=== PATIENT | female | born 1950 | race Caucasian/White ===

== ENCOUNTER 2021-11-10 16:00 | Inpatient (IN) ==
[2021-11-10] MEDS ORDERED: DECADRON IVP ONE (16:38)
--- NOTE | 2021-11-10 16:38 | ED.PDOC ---
General ED Provider: Dr. DILIP LEMA MD Chief Complaint: Shortness of Air Stated Complaint: mild to mod off and on cough and short of breath for a few days, diagnosed covid + on Saturday, no fever, no NV, +general weakness Time Seen by Provider: 11/10/21 16:27 Mode of Arrival: Walk-In Information Source: Patient Primary Care Provider: BASIL CONTRERAS Nursing and Triage Documentation Reviewed and Agree: Yes Does patient meet sepsis criteria?: No System Inflammatory Response Syndrome: Not Applicable Sepsis Protocol: For patient's 13 years and over: Temp is 96.8 and below OR 101 and greater Pulse >90 BPM Resp >20/minute Acutely Altered Mental Status Are patient's symptoms suggestive of a new infection, such as: -Pneumonia -Skin, Soft Tissue -Endocarditis -UTI -Bone, Joint Infection -Implantable Device -Acute Abdominal Infection -Wound Infection -Meningitis -Blood Stream Catheter Infection -Unknown Review of Systems Review Of Systems Constitutional: Reports Malaise and Weakness; Denies Fever Eyes: Denies Vision change Ears, Nose, Mouth, Throat: Denies Throat pain Respiratory: Reports Cough and Short of air; Denies Stridor or Wheezing Cardiac: Denies Chest pain GI: Denies Abdominal pain or Vomiting : Denies Dysuria Musculoskeletal: Denies Neck pain Skin: Denies Rash or Cyanosis Neurological: Denies Cognitive dysfunction All Other Systems: Other PFSH Female Reproductive History Menstrual Hx Hysterectomy: No Hx Tubal Ligation: No Physical Exam Physical Exam Appearance: Reports No pain distress Ill-appearing: Mild Pain Distress: None Eyes: Reports VERENA, EOMI and Conjunctiva clear ENT: Denies Rhinorrhea Neck: Supple Respiratory: Reports Airway patent, Breath sounds clear and Breath sounds equal Cardiovascular: Reports RRR GI/: Reports Soft and Nontender Musculoskeletal: Reports ROM intact and No edema Skin: Reports Warm and Dry Neurological: Reports Alert and Oriented Psychiatric: Reports Affect appropriate Critical Care Note Critical Care Note Total Critical Care Time (mins): 0 Course Course Hematology/Chemistry: 11/10/21 16:49 11/10/21 16:49 Orders, Labs, Meds: Lab Review 11/10/21 11/10/21 11/10/21 16:49 16:49 16:49 WBC 4.68 RBC 3.74 L Hgb 11.9 L Hct 35.8 L MCV 95.7 MCH 31.8 H MCHC 33.2 RDW Coeff of Alexis 14.3 Plt Count 105 L Immature Gran % (Auto) 0.4 Neut % (Auto) 63.4 Lymph % (Auto) 27.1 Alfalfa % (Auto) 8.5 Eos % (Auto) 0.2 Baso % (Auto) 0.4 Neut # (Auto) 3.0 Lymph # (Auto) 1.3 Alfalfa # (Auto) 0.4 Eos # (Auto) 0.0 Baso # (Auto) 0.0 Immature Gran # (Auto) 0.0 Puncture Site Base Excess O2 Saturation ABG pH ABG pCO2 ABG pO2 ABG HCO3 ABG Total CO2 Iglesia Test Hemoglobin Oxyhemoglobin Carboxyhemoglobin Total Hemoglobin FiO2 % Sodium 135.1 Potassium 4.32 Chloride 100.8 Carbon Dioxide 25.7 Anion Gap 12.92 BUN 23.6 H Creatinine 1.39 H Estimated GFR (MDRD) 37.00 BUN/Creatinine Ratio 16.97 Glucose 112.6 H Lactic Acid Calcium 8.67 Total Bilirubin 0.53 AST 86.9 H ALT 67.6 H Alkaline Phosphatase 47.2 L Troponin I < 0.012 Total Protein 7.14 Albumin 4.17 Globulin 2.97 Albumin/Globulin Ratio 1.40 D-Dimer 983.05 H 11/10/21 11/10/21 17:05 17:53 WBC RBC Hgb Hct MCV MCH MCHC RDW Coeff of Alexis Plt Count Immature Gran % (Auto) Neut % (Auto) Lymph % (Auto) Alfalfa % (Auto) Eos % (Auto) Baso % (Auto) Neut # (Auto) Lymph # (Auto) Alfalfa # (Auto) Eos # (Auto) Baso # (Auto) Immature Gran # (Auto) Puncture Site Rr Base Excess -1.1 O2 Saturation 91.3 L ABG pH 7.43 ABG pCO2 35.0 ABG pO2 60.0 L ABG HCO3 23.2 ABG Total CO2 24.3 H Iglesia Test Pos Hemoglobin 1.4 Oxyhemoglobin 90.9 L Carboxyhemoglobin 1.3 Total Hemoglobin 11.9 FiO2 % 21.0 Sodium Potassium Chloride Carbon Dioxide Anion Gap BUN Creatinine Estimated GFR (MDRD) BUN/Creatinine Ratio Glucose Lactic Acid 1.81 Calcium Total Bilirubin AST ALT Alkaline Phosphatase Troponin I Total Protein Albumin Globulin Albumin/Globulin Ratio D-Dimer Orders Category Date Time Status ABG DRAW REQUEST Stat CARDIO 11/10/21 16:34 Completed EKG-(ED ONLY) Stat CARDIO 11/10/21 16:34 Completed EKG-(ED ONLY) Stat CARDIO 11/10/21 18:25 Stop Req OXYGEN [ED APPLY O2] .ONCE EMERGENCY 11/10/21 18:31 Active ABG COOX Stat LAB 11/10/21 17:05 Completed BLOOD CULTURE Stat LAB 11/10/21 17:57 Received CBC W/ AUTO DIFF Stat LAB 11/10/21 16:49 Completed CMP [COMPREHENSIVE METABOLIC PANEL] Stat LAB 11/10/21 16:49 Completed D-DIMER Stat LAB 11/10/21 16:49 Completed LACTIC ACID Stat LAB 11/10/21 17:53 Completed TROPONIN I Stat LAB 11/10/21 16:49 Completed Dexamethasone Sod Phosphate [Decadron] MEDS 11/10/21 16:38 Discontinued 6 mg IVP ONCE ONE CHEST, 1V AP ONLY Stat RADS 11/10/21 16:34 Completed Medications Discontinued Medications Generic Name Dose Route Start Last Admin Trade Name Freq PRN Reason Stop Dose Admin Dexamethasone Sodium Phosphate 6 mg 11/10/21 16:38 11/10/21 17:08 Dexamethasone Sod Phos 10 Mg/Ml Inj IVP 11/10/21 16:39 6 mg ONCE ONE Administration Vital Signs: Temp Pulse Resp BP Pulse Ox 11/10/21 16:13 97.7 F 81 20 129/58 L 92 L Discharge Plan Discharge Prescriptions: No Action metformin 500 mg Tablet 500 mg PO BID 0RF atenolol 25 mg Tablet 25 mg PO DAILY 0RF ciprofloxacin HCl [Cipro] 500 mg Tablet 500 mg PO BID 0RF hydrocodone-acetaminophen 10-325 mg Tablet 1 tab PO BID PRN (Reason: Pain) 0RF omeprazole 40 mg Capsule,Delayed Release(Dr/Ec) 40 mg PO BEDTIME 0RF levothyroxine [Euthyrox] 75 mcg Tablet 75 mcg PO DAILY 0RF trazodone 100 mg Tablet 100 mg PO BEDTIME PRN (Reason: Insomnia) 0RF gemfibrozil 600 mg Tablet 600 mg PO BID 0RF indapamide 1.25 mg Tablet 1.25 mg PO QAM 0RF omeprazole 20 mg Capsule,Delayed Release(Dr/Ec) 20 mg PO DAILY 0RF aspirin 81 mg Tablet 81 mg PO DAILY 0RF ibuprofen 600 mg Tablet 600 mg PO TID PRN (Reason: Pain) 0RF vitamin E 400 unit Capsule 400 unit PO BID 0RF cholecalciferol (vitamin D3) [Vitamin D3] 25 mcg (1,000 unit) Capsule 25 mcg PO DAILY 0RF escitalopram oxalate 10 mg Tablet 10 mg PO DAILY 0RF gabapentin 300 mg Tablet 300 mg PO TID 0RF ED Provider: DILIP LEMA Physician Progress Note: d/w Dr Contreras who advises transfer care to Dr Vaughn at 19:00 []
[2021-11-10 16:57] LABS: BASOPHILS % (AUTO) 0.4 % (0.0-3.0); EOSINOPHILS % (AUTO) 0.2 % (0.0-7.0); HEMATOCRIT 35.8 % (37.0-47.0); HEMOGLOBIN 11.9 g/dl (12.0-16.0); IMMATURE GRANULOCYTE % (AUTO) 0.4 % (0.0-5.0); LYMPHOCYTES # (AUTO) 1.3 K/uL (0.60-3.4); LYMPHOCYTES % (AUTO) 27.1 (10.0-50.0); MEAN CORPUSCULAR HEMOGLOBIN 31.8 pg (27.0-31.0); MEAN CORPUSCULAR HGB CONC 33.2 (31.8-35.4); MEAN CORPUSCULAR VOLUME 95.7 fl (81.0-99.0); MONOCYTES # (AUTO) 0.4 K/uL (0.4-2.0); MONOCYTES % (AUTO) 8.5 (0-10); NEUTROPHILS % (AUTO) 63.4 % (42.2-75.2); PLATELET COUNT 105 10^3/uL (140-440); RDW COEFFICIENT OF VARIATION 14.3 % (11.6-14.8); RED BLOOD COUNT 3.74 10^6/ul (4.20-5.40); WHITE BLOOD COUNT 4.68 K/ul (4.6-10.2)
[2021-11-10 17:04] LABS: ALANINE AMINOTRANSFERASE 67.6 U/L (0-35); ALBUMIN 4.17 g/dL (3.5-5.0); ALKALINE PHOSPHATASE 47.2 U/L (53-141); ASPARTATE AMINO TRANSFERASE 86.9 U/L (14-36); BILIRUBIN,TOTAL 0.53 mg/dL (0.2-1.3); BLOOD UREA NITROGEN 23.6 mg/dL (7-17); CALCIUM 8.67 mg/dL (8.4-10.2); CARBON DIOXIDE 25.7 mmol/L (22-30.0); CHLORIDE 100.8 mmol/L (98-107); CREATININE 1.39 mg/dL (0.60-1.30); GLUCOSE 112.6 mg/dL (74-106); POTASSIUM 4.32 mmol/L (3.5-5.1); SODIUM 135.1 mmol/L (134.5-145); TOTAL PROTEIN 7.14 g/dL (6.3-8.2)
--- NOTE | 2021-11-10 17:11 | DI ---
EXAM: Chest one view HISTORY: Weakness COMPARISON: None TECHNIQUE: Single view of the chest was performed FINDINGS: The lungs are clear. There is no pleural effusion or pneumothorax. The heart is normal i n size. The mediastinal contour is normal. There are no acute abnormalities of the bones. IMPRESSION: No acute cardiopulmonary process.
[2021-11-10 17:14] LABS: ABG O2 HGB 90.9 % (95-100); ABG PH 7.43 (7.35-7.45); BEecf -1.1 (-2.0-3.0); COHb 1.3 (0.5-1.5); HCO3 23.2 (21-28); MetHb 1.4 (0-1.5); TCO2 24.3 (19-24); sO2 91.3 % (94-98); tHb 11.9 g/dl (11.7-17.4)
[2021-11-10 17:16] LABS: TROPONIN I < 0.012 ng/ml (0.0000-0.120)
[2021-11-10] MEDS ORDERED: BOOSTRIX IM ONE (18:25)
[2021-11-10] MEDS ORDERED: VEKLURY 200 MG in SODIUM CHLORIDE 250 ML IV ONE (23:09)
[2021-11-11 00:07] VITALS: BMI 32.7
[2021-11-11] MEDS: VITAMIN D PO SCH ×3 (00:41→09:52)
[2021-11-11] MEDS: ZINC-220 PO SCH ×2 (00:41→09:51)
[2021-11-11] MEDS: ZYRTEC PO SCH ×3 (00:42→10:50)
[2021-11-11 05:44] LABS: BASOPHILS % (AUTO) 0.3 % (0.0-3.0); HEMATOCRIT 34.2 % (37.0-47.0); HEMOGLOBIN 11.5 g/dl (12.0-16.0); IMMATURE GRANULOCYTE % (AUTO) 0.3 % (0.0-5.0); LYMPHOCYTES # (AUTO) 1.1 K/uL (0.60-3.4); LYMPHOCYTES % (AUTO) 35.7 (10.0-50.0); MEAN CORPUSCULAR HEMOGLOBIN 32.1 pg (27.0-31.0); MEAN CORPUSCULAR HGB CONC 33.6 (31.8-35.4); MEAN CORPUSCULAR VOLUME 95.5 fl (81.0-99.0); MONOCYTES # (AUTO) 0.1 K/uL (0.4-2.0); MONOCYTES % (AUTO) 4.5 (0-10); NEUTROPHILS # (AUTO) 1.8 K/ul (2.0-6.9); NEUTROPHILS % (AUTO) 59.2 % (42.2-75.2); PLATELET COUNT 110 10^3/uL (140-440); RDW COEFFICIENT OF VARIATION 14.1 % (11.6-14.8); RED BLOOD COUNT 3.58 10^6/ul (4.20-5.40); WHITE BLOOD COUNT 3.08 K/ul (4.6-10.2)
[2021-11-11 05:53] LABS: ALANINE AMINOTRANSFERASE 66.4 U/L (0-35); ALBUMIN 4.06 g/dL (3.5-5.0); ALKALINE PHOSPHATASE 52.3 U/L (53-141); ASPARTATE AMINO TRANSFERASE 78.9 U/L (14-36); BILIRUBIN,TOTAL 0.49 mg/dL (0.2-1.3); BLOOD UREA NITROGEN 24.5 mg/dL (7-17); CALCIUM 8.57 mg/dL (8.4-10.2); CARBON DIOXIDE 24.9 mmol/L (22-30.0); CHLORIDE 100.6 mmol/L (98-107); CREATININE 1.17 mg/dL (0.60-1.30); GLUCOSE 238.5 mg/dL (74-106); POTASSIUM 4.05 mmol/L (3.5-5.1); SODIUM 134.5 mmol/L (134.5-145); TOTAL PROTEIN 7.23 g/dL (6.3-8.2)
[2021-11-11 06:05] LABS: TROPONIN I < 0.012 ng/ml (0.0000-0.120)
[2021-11-11 06:14] LABS: PROTHROMBIN TIME 10.3 SEC (9.3-11.0)
[2021-11-11] MEDS: SYNTHROID PO SCH (06:27)
[2021-11-11] MEDS: HUMULIN R SUBCUT PRN ×3 (06:55→19:08)
[2021-11-11] MEDS ORDERED: VENTOLIN HFA (PER PUFF-WITH SPACER) IH SCH (09:00)
[2021-11-11] MEDS ORDERED: NON-FORMULARY MEDICATION (Gabapentin 300 mg Tablet) PO SCH (09:00)
[2021-11-11] MEDS ORDERED: VEKLURY 200 MG in SODIUM CHLORIDE 250 ML IV ONE (09:30)
--- NOTE | 2021-11-11 09:30 | PCM ---
Chief Complaint Chief Complaint: aches all over slight short of breath no chest pain Covid dx Review of Systems Constitutional: Reports No symptoms Eyes: Reports No symptoms Ears: Reports No symptoms Nose: Reports No symptoms Throat: Reports No symptoms Mouth: Reports No symptoms Respiratory: Reports Shortness of air (mild) Cardiovascular: Reports No symptoms Gastrointestinal: Reports No symptoms Genitourinary: Reports No symptoms Neurological: Reports No symptoms Musculoskeletal: Reports Other (achy ) Skin: Reports No symptoms Immunology: Reports No symptoms Hematology: Reports No symptoms Endocrine: Reports No symptoms Psychiatric: Reports No symptoms Allergies Allergies Allergy/AdvReac Type Severity Reaction Status Date / Time diphenhydramine AdvReac Verified 11/10/21 16:25 [From Benadryl] latex AdvReac Verified 11/10/21 16:25 Sulfa (Sulfonamide AdvReac Verified 11/10/21 16:25 Antibiotics) ANESTHESIA AdvReac Uncoded 11/10/21 16:25 Medications Medications: Medications Generic Name Dose Route Start Last Admin Trade Name Freq PRN Reason Stop Dose Admin Albuterol Sulfate 2 puff 11/11/21 09:00 Albuterol Sulfate (Ventolin Hfa) 18 Gm 1 Puff With Spacer IH TID [facility] Aspirin 81 mg 11/11/21 09:00 Aspirin 81 Mg Tab.Chew PO DAILY [facility] Atenolol 25 mg 11/11/21 09:00 Atenolol 25 Mg Tablet PO DAILY [facility] Cetirizine HCl 10 mg 11/10/21 23:30 11/11/21 00:42 Cetirizine Hcl 5 Mg/5 Ml Ud Cup PO Not Given DAILY [facility] Cholecalciferol 5,000 unit 11/10/21 23:20 11/11/21 00:41 Cholecalciferol (Vitamin D3) 1,000 Unit (25 Mcg) Tablet PO 5,000 unit DAILY [facility] Administration Cholecalciferol 1,000 unit 11/11/21 09:00 Cholecalciferol (Vitamin D3) 1,000 Unit (25 Mcg) Tablet PO DAILY [facility] Dexamethasone Sodium Phosphate 6 mg 11/11/21 09:00 Dexamethasone Sod Phos 10 Mg/Ml Inj IM DAILY [facility] Escitalopram Oxalate 10 mg 11/11/21 09:00 Escitalopram Oxalate 10 Mg Tablet PO DAILY [facility] Gabapentin 600 mg 11/11/21 09:00 Gabapentin 300 Mg Capsule PO DAILY [facility] Gabapentin 100 mg 11/11/21 09:00 Gabapentin 100 Mg Capsule PO DAILY [facility] Gemfibrozil 600 mg 11/11/21 09:00 Gemfibrozil 600 Mg Tablet PO BID [facility] Heparin Sodium (Porcine) 5,000 units 11/11/21 09:00 Heparin Sodium,Porcine 5,000 Units/Ml Syringe SUBCUT Q12HR ARCHIE REMDESIVIR SOLUTION 100 mg/ 270 mls @ 270 mls/hr 11/12/21 12:00 Sodium Chloride IV 11/15/21 15:59 1200 ARCHIE REMDESIVIR SOLUTION 200 mg/ 290 mls @ 145 mls/hr 11/11/21 09:30 Sodium Chloride IV 11/11/21 11:29 ONCE ONE Insulin Human Regular 0 unit 11/11/21 05:45 11/11/21 06:55 Insulin Regular, Human 100 Unit/Ml (3ml) Vial SUBCUT 4 unit PRN PRN Administration Hyperglycemia Protocol Levothyroxine Sodium 75 mcg 11/11/21 06:30 11/11/21 06:27 Levothyroxine Sodium 75 Mcg Tablet PO 75 mcg 0630 ARCHIE Administration Non-Formulary Medication 1.25 mg 11/11/21 09:00 Indapamide PO QAM [facility] Trazodone HCl 100 mg 11/11/21 01:47 Trazodone Hcl 50 Mg Tablet PO BEDTIME PRN Insomnia Vitamin E 400 unit 11/11/21 09:00 Vitamin E (Dl,Tocopheryl Acet) 400 Unit Capsule PO BID [facility] Zinc Sulfate 220 mg 11/10/21 23:20 11/11/21 00:41 Zinc Sulfate 220 Mg Capsule PO 220 mg DAILY ARCHIE Administration Body Composition Height: 5 ft 3 in Weight: 184 lb 9 oz Body Mass Index (BMI): 32.7 Vital Signs Temperature: 98.0 F Pulse Rate: 65 Respiratory Rate: 18 Blood Pressure: 129/68 O2 Sat by Pulse Oximetry: 94 Physical Examination Appearance: Reports Well-appearing, No pain distress and Well-nourished Ill-appearing: Mild Pain Distress: None ENT: Reports Ears normal, Nose normal and Oropharynx normal Neck: Supple Respiratory: Reports Airway patent, Breath sounds clear and Breath sounds equal Cardiovascular: Reports RRR, Pulses normal and No murmur GI/: Reports Soft and Nontender Musculoskeletal: Reports Normal strength and No edema Skin: Reports Dry and Normal color Neurological: Reports Sensation intact, Alert and Oriented Psychiatric: Reports Affect appropriate Lab/Tests/Diagnostic Imaging Lab/Tests/Diagnostic Imaging: Lab Review 11/10/21 11/10/21 11/10/21 16:49 16:49 16:49 WBC 4.68 RBC 3.74 L Hgb 11.9 L Hct 35.8 L MCV 95.7 MCH 31.8 H MCHC 33.2 RDW Coeff of Alexis 14.3 Plt Count 105 L Immature Gran % (Auto) 0.4 Neut % (Auto) 63.4 Lymph % (Auto) 27.1 Clare % (Auto) 8.5 Eos % (Auto) 0.2 Baso % (Auto) 0.4 Neut # (Auto) 3.0 Lymph # (Auto) 1.3 Clare # (Auto) 0.4 Eos # (Auto) 0.0 Baso # (Auto) 0.0 Immature Gran # (Auto) 0.0 PT INR Puncture Site Base Excess O2 Saturation ABG pH ABG pCO2 ABG pO2 ABG HCO3 ABG Total CO2 Iglesia Test Hemoglobin Oxyhemoglobin Carboxyhemoglobin Total Hemoglobin FiO2 % Sodium 135.1 Potassium 4.32 Chloride 100.8 Carbon Dioxide 25.7 Anion Gap 12.92 BUN 23.6 H Creatinine 1.39 H Estimated GFR (MDRD) 37.00 BUN/Creatinine Ratio 16.97 Glucose 112.6 H Lactic Acid Calcium 8.67 Ferritin Total Bilirubin 0.53 AST 86.9 H ALT 67.6 H Alkaline Phosphatase 47.2 L Troponin I < 0.012 Total Protein 7.14 Albumin 4.17 Globulin 2.97 Albumin/Globulin Ratio 1.40 D-Dimer 983.05 H 11/10/21 11/10/21 11/11/21 17:05 17:53 05:00 WBC 3.08 L RBC 3.58 L Hgb 11.5 L Hct 34.2 L MCV 95.5 MCH 32.1 H MCHC 33.6 RDW Coeff of Alexis 14.1 Plt Count 110 L Immature Gran % (Auto) 0.3 Neut % (Auto) 59.2 Lymph % (Auto) 35.7 Clare % (Auto) 4.5 Eos % (Auto) 0.0 Baso % (Auto) 0.3 Neut # (Auto) 1.8 L Lymph # (Auto) 1.1 Clare # (Auto) 0.1 L Eos # (Auto) 0.0 Baso # (Auto) 0.0 Immature Gran # (Auto) 0.0 PT INR Puncture Site Rr Base Excess -1.1 O2 Saturation 91.3 L ABG pH 7.43 ABG pCO2 35.0 ABG pO2 60.0 L ABG HCO3 23.2 ABG Total CO2 24.3 H Iglesia Test Pos Hemoglobin 1.4 Oxyhemoglobin 90.9 L Carboxyhemoglobin 1.3 Total Hemoglobin 11.9 FiO2 % 21.0 Sodium Potassium Chloride Carbon Dioxide Anion Gap BUN Creatinine Estimated GFR (MDRD) BUN/Creatinine Ratio Glucose Lactic Acid 1.81 Calcium Ferritin Total Bilirubin AST ALT Alkaline Phosphatase Troponin I Total Protein Albumin Globulin Albumin/Globulin Ratio D-Dimer 11/11/21 11/11/21 11/11/21 05:15 05:15 05:15 WBC RBC Hgb Hct MCV MCH MCHC RDW Coeff of Alexis Plt Count Immature Gran % (Auto) Neut % (Auto) Lymph % (Auto) Clare % (Auto) Eos % (Auto) Baso % (Auto) Neut # (Auto) Lymph # (Auto) Clare # (Auto) Eos # (Auto) Baso # (Auto) Immature Gran # (Auto) PT 10.3 INR 0.99 Puncture Site Base Excess O2 Saturation ABG pH ABG pCO2 ABG pO2 ABG HCO3 ABG Total CO2 Iglesia Test Hemoglobin Oxyhemoglobin Carboxyhemoglobin Total Hemoglobin FiO2 % Sodium 134.5 Potassium 4.05 Chloride 100.6 Carbon Dioxide 24.9 Anion Gap 13.05 BUN 24.5 H Creatinine 1.17 Estimated GFR (MDRD) 45.00 BUN/Creatinine Ratio 20.94 Glucose 238.5 H D Lactic Acid Calcium 8.57 Ferritin 153.00 Total Bilirubin 0.49 AST 78.9 H ALT 66.4 H Alkaline Phosphatase 52.3 L Troponin I < 0.012 Total Protein 7.23 Albumin 4.06 Globulin 3.17 Albumin/Globulin Ratio 1.28 D-Dimer 962.79 H Orders Category Date Time Status ABG DRAW REQUEST Stat CARDIO 11/10/21 16:34 Completed EKG-(ED ONLY) Stat CARDIO 11/10/21 16:34 Completed OXYGEN Routine CARDIO 11/10/21 23:20 Active ACCUCHECK (MED/SURG, SCU) [BLOOD GLUCOSE MONITORING] CARE 11/10/21 23:30 Active 0630,1100,1700,2200 CONTINUOUS PULSE OX (NURSING) PULSEOX CARE 11/10/21 23:09 Active TELEMETRY MONITORING TELE CARE 11/10/21 23:09 Active VITALS [VITAL SIGNS] Q4HR CARE 11/10/21 23:20 Active CONSISTENT CARBS DIET DIETARY 11/11/21 Breakfast Ordered HS SNACK DIETARY 11/11/21 Dinner Ordered OXYGEN [ED APPLY O2] .ONCE EMERGENCY 11/10/21 18:31 Active ABG COOX Stat LAB 11/10/21 17:05 Completed BLOOD CULTURE Stat LAB 11/10/21 17:57 Received C-REACTIVE PROTEIN DAILY@0600 LAB 11/11/21 05:15 Received C-REACTIVE PROTEIN DAILY@0600 LAB 11/12/21 06:00 Ordered CBC W/ AUTO DIFF DAILY@0600 LAB 11/11/21 05:00 Completed CBC W/ AUTO DIFF DAILY@0600 LAB 11/12/21 06:00 Ordered CBC W/ AUTO DIFF Stat LAB 11/10/21 16:49 Completed CMP [COMPREHENSIVE METABOLIC PANEL] DAILY@0600 LAB 11/11/21 05:15 Completed CMP [COMPREHENSIVE METABOLIC PANEL] DAILY@0600 LAB 11/12/21 06:00 Ordered CMP [COMPREHENSIVE METABOLIC PANEL] Stat LAB 11/10/21 16:49 Completed D-DIMER DAILY@0600 LAB 11/11/21 05:15 Completed D-DIMER DAILY@0600 LAB 11/12/21 06:00 Ordered D-DIMER Stat LAB 11/10/21 16:49 Completed FERRITIN DAILY@0600 LAB 11/11/21 05:15 Completed FERRITIN DAILY@0600 LAB 11/12/21 06:00 Ordered LACTIC ACID Stat LAB 11/10/21 17:53 Completed Lactic Acid Dehydrogenase DAILY@0600 LAB 11/11/21 05:15 Received PT WITH INR DAILY@0600 LAB 11/11/21 05:15 Completed PT WITH INR DAILY@0600 LAB 11/12/21 06:00 Ordered TROPONIN I DAILY@0600 LAB 11/11/21 05:15 Completed TROPONIN I DAILY@0600 LAB 11/12/21 06:00 Ordered TROPONIN I Stat LAB 11/10/21 16:49 Completed Albuterol Inhaler(with Spacer) [Ventolin Hfa (Per Puff- MEDS 11/11/21 09:00 Active with Spacer)] 2 puff IH TID Aspirin [Aspirin Chewable] MEDS 11/11/21 09:00 Active 81 mg PO DAILY Atenolol [Tenormin] MEDS 11/11/21 09:00 Active 25 mg PO DAILY Cetirizine HCl [Zyrtec] MEDS 11/10/21 23:30 Active 10 mg PO DAILY Cholecalciferol (Vitamin D3) [Vitamin D] MEDS 11/11/21 09:00 Active 1,000 unit PO DAILY Cholecalciferol (Vitamin D3) [Vitamin D] MEDS 11/10/21 23:20 Active 5,000 unit PO DAILY Dexamethasone Sod Phosphate [Decadron] MEDS 11/11/21 09:00 Active 6 mg IM DAILY Dexamethasone Sod Phosphate [Decadron] MEDS 11/10/21 16:38 Discontinued 6 mg IVP ONCE ONE Escitalopram Oxalate [Lexapro] MEDS 11/11/21 09:00 Active 10 mg PO DAILY Gabapentin [Neurontin] MEDS 11/11/21 09:00 Active 100 mg PO DAILY Gabapentin [Neurontin] MEDS 11/11/21 09:00 Active 600 mg PO DAILY Gemfibrozil [Lopid] MEDS 11/11/21 09:00 Active 600 mg PO BID Heparin Sodium,Porcine [Heparin] MEDS 11/11/21 09:00 Active 5,000 units SUBCUT Q12HR Insulin Regular, Human [Humulin R] MEDS 11/11/21 05:45 Active See Protocol SUBCUT PRN PRN Levothyroxine Sodium [Synthroid] MEDS 11/11/21 06:30 Active 75 mcg PO 0630 Remdesivir Solution [Veklury] 100 mg MEDS 11/12/21 12:00 Active 0.9 % Sodium Chloride [Sodium Chloride] 250 ml IV 1200 Remdesivir Solution [Veklury] 200 mg MEDS 11/10/21 23:09 Discontinued 0.9 % Sodium Chloride [Sodium Chloride] 250 ml IV ONCE Remdesivir Solution [Veklury] 200 mg MEDS 11/11/21 09:30 Active 0.9 % Sodium Chloride [Sodium Chloride] 250 ml IV ONCE Trazodone HCl [Desyrel] MEDS 11/11/21 01:47 Active 100 mg PO BEDTIME PRN Vitamin E (Dl,Tocopheryl Acet) [Vitamin E] MEDS 11/11/21 09:00 Active 400 unit PO BID Zinc Sulfate [Zinc-220] MEDS 11/10/21 23:20 Active 220 mg PO DAILY gabapentin MEDS 11/11/21 09:00 Discontinued 300 mg PO TID indapamide MEDS 11/11/21 09:00 Active 1.25 mg PO QAM RESUSCITATION STATUS Routine OTHERS 11/11/21 00:07 Ordered CHEST, 1V AP ONLY Routine RADS 11/11/21 07:00 Ordered CHEST, 1V AP ONLY Stat RADS 11/10/21 16:34 Completed Medications Generic Name Dose Route Start Last Admin Trade Name Meet PRN Reason Stop Dose Admin Albuterol Sulfate 2 puff 11/11/21 09:00 Albuterol Sulfate (Ventolin Hfa) 18 Gm 1 Puff With Spacer IH TID [facility] Aspirin 81 mg 11/11/21 09:00 Aspirin 81 Mg Tab.Chew PO DAILY [facility] Atenolol 25 mg 11/11/21 09:00 Atenolol 25 Mg Tablet PO DAILY [facility] Cetirizine HCl 10 mg 11/10/21 23:30 11/11/21 00:42 Cetirizine Hcl 5 Mg/5 Ml Ud Cup PO Not Given DAILY [facility] Cholecalciferol 5,000 unit 11/10/21 23:20 11/11/21 00:41 Cholecalciferol (Vitamin D3) 1,000 Unit (25 Mcg) Tablet PO 5,000 unit DAILY [facility] Administration Cholecalciferol 1,000 unit 11/11/21 09:00 Cholecalciferol (Vitamin D3) 1,000 Unit (25 Mcg) Tablet PO DAILY [facility] Dexamethasone Sodium Phosphate 6 mg 11/11/21 09:00 Dexamethasone Sod Phos 10 Mg/Ml Inj IM DAILY [facility] Escitalopram Oxalate 10 mg 11/11/21 09:00 Escitalopram Oxalate 10 Mg Tablet PO DAILY [facility] Gabapentin 600 mg 11/11/21 09:00 Gabapentin 300 Mg Capsule PO DAILY [facility] Gabapentin 100 mg 11/11/21 09:00 Gabapentin 100 Mg Capsule PO DAILY [facility] Gemfibrozil 600 mg 11/11/21 09:00 Gemfibrozil 600 Mg Tablet PO BID [facility] Heparin Sodium (Porcine) 5,000 units 11/11/21 09:00 Heparin Sodium,Porcine 5,000 Units/Ml Syringe SUBCUT Q12HR [facility] REMDESIVIR SOLUTION 100 mg/ 270 mls @ 270 mls/hr 11/12/21 12:00 Sodium Chloride IV 11/15/21 15:59 1200 [facility] REMDESIVIR SOLUTION 200 mg/ 290 mls @ 145 mls/hr 11/11/21 09:30 Sodium Chloride IV 11/11/21 11:29 ONCE ONE Insulin Human Regular 0 unit 11/11/21 05:45 11/11/21 06:55 Insulin Regular, Human 100 Unit/Ml (3ml) Vial SUBCUT 4 unit PRN PRN Administration Hyperglycemia Protocol Levothyroxine Sodium 75 mcg 11/11/21 06:30 11/11/21 06:27 Levothyroxine Sodium 75 Mcg Tablet PO 75 mcg 0630 ARCHIE Administration Non-Formulary Medication 1.25 mg 11/11/21 09:00 Indapamide PO QAM [facility] Trazodone HCl 100 mg 11/11/21 01:47 Trazodone Hcl 50 Mg Tablet PO BEDTIME PRN Insomnia Vitamin E 400 unit 11/11/21 09:00 Vitamin E (Dl,Tocopheryl Acet) 400 Unit Capsule PO BID [facility] Zinc Sulfate 220 mg 11/10/21 23:20 11/11/21 00:41 Zinc Sulfate 220 Mg Capsule PO 220 mg DAILY [facility] Administration Discontinued Medications Generic Name Dose Route Start Last Admin Trade Name Freq PRN Reason Stop Dose Admin Dexamethasone Sodium Phosphate 6 mg 11/10/21 16:38 11/10/21 17:08 Dexamethasone Sod Phos 10 Mg/Ml Inj IVP 11/10/21 16:39 6 mg ONCE ONE Administration REMDESIVIR SOLUTION 200 mg/ 290 mls @ 145 mls/hr 11/10/21 23:09 11/11/21 00:38 Sodium Chloride IV 11/11/21 01:08 Not Given ONCE ONE Non-Formulary Medication 300 mg 11/11/21 09:00 Gabapentin PO TID [facility] Plan Plan: 1.Non vaccinated pt with initial mild respiratory sx - will place in hospital to treat sx , start remesdivir, monitor. Pt was 92 sat on room air and 96-98 on 2 liters. Her dimer is mildly elevated yet no air hunger , chest pain , and she is covid positive. I called her grandson with permission and explained I beleive a CTA contrast could be harmful and that heparin will be administered for dvt. Reasses daily. 2.Report to Dr Lr at shift change 3.Discussed situation earlier with Dr Villafuerte as no area beds to transfer this pt to with her current level of symptoms. [facility]
[2021-11-11] MEDS: DECADRON IM SCH (09:49)
[2021-11-11] MEDS: HEPARIN SUBCUT SCH ×2 (09:50→21:24)
[2021-11-11] MEDS: LOPID PO SCH ×2 (09:50→21:23)
[2021-11-11] MEDS: NEURONTIN PO SCH ×2 (09:51)
[2021-11-11] MEDS: VITAMIN E PO SCH ×2 (09:51→21:23)
[2021-11-11] MEDS: ASPIRIN CHEWABLE PO SCH (09:53)
[2021-11-11] MEDS: TENORMIN PO SCH (09:53)
[2021-11-11] MEDS: LEXAPRO PO SCH (09:53)
[2021-11-11] MEDS: INDAPAMIDE 1.25 MG PO SCH (10:41)
[2021-11-11] MEDS: SODIUM CHLORIDE 1,000 ML IV SCH (10:42)
[2021-11-11] MEDS: VENTOLIN HFA (PER PUFF-WITH SPACER) IH SCH ×3 (12:33→19:50)
--- NOTE | 2021-11-11 14:52 | DI ---
EXAM: One-view chest HISTORY: Covid TECHNIQUE: Single frontal view the chest was obtained. Comparison 11/10/2021. FINDINGS: The heart is stable size. Lungs are clear. The pulmonary vasculature appears normal. Th e costophrenic angles are sharp. The osseous structures and mediastinal contours are normal. IMPRESSION: No active cardiopulmonary disease.
--- NOTE | 2021-11-11 20:18 | PCM.PROG ---
Date Seen by Provider: 11/11/21 Time Seen by Provider: 09:30 Subjective: Admited though ER Earlier this date due to respiraltoy congestion and pos COVID. VSS and O2 Sat 94 % Patient currently non dyspneic at rest Objective: Vitals: T=98.2 F, P=73, R=21, KG=350/46, SPO2=97 HEENT: Clear Neck: supple non tendere Lungs:Decr BS no signf abnormal BS CVS: HR RRR Abdomen: Soft Non tender Extremities: [] Neurological: Nml Skin: [] Lab/Tests/Diagnostic Imaging: CXR no evid pneumonia (1) COVID-19 virus infection: Status: Acute Code(s): U07.1 - COVID-19 SNOMED Code(s): 563316160 (2) Diabetes mellitus, type II: Status: Acute Code(s): E11.9 - Type 2 diabetes mellitus without complications SNOMED Code(s): 75513248 Plan: discussed treatment Explained therapy options including Redesivir-pt interested in initiating therapy Monitor Pulm Status Resp Therapy
[2021-11-11] MEDS: DESYREL PO PRN (21:33)
[2021-11-12] MEDS: SYNTHROID PO SCH (06:20)
[2021-11-12] MEDS: VENTOLIN HFA (PER PUFF-WITH SPACER) IH SCH ×3 (06:40→20:40)
[2021-11-12 06:47] LABS: BASOPHILS % (AUTO) 0.1 % (0.0-3.0); HEMATOCRIT 35.1 % (37.0-47.0); HEMOGLOBIN 11.7 g/dl (12.0-16.0); IMMATURE GRANULOCYTE # (AUTO) 0.1 (0.0-1.0); IMMATURE GRANULOCYTE % (AUTO) 0.5 % (0.0-5.0); LYMPHOCYTES # (AUTO) 1.7 K/uL (0.60-3.4); LYMPHOCYTES % (AUTO) 18.1 (10.0-50.0); MEAN CORPUSCULAR HEMOGLOBIN 32.1 pg (27.0-31.0); MEAN CORPUSCULAR HGB CONC 33.3 (31.8-35.4); MEAN CORPUSCULAR VOLUME 96.2 fl (81.0-99.0); MONOCYTES # (AUTO) 0.5 K/uL (0.4-2.0); MONOCYTES % (AUTO) 5.2 (0-10); NEUTROPHILS % (AUTO) 76.1 % (42.2-75.2); PLATELET COUNT 121 10^3/uL (140-440); RDW COEFFICIENT OF VARIATION 14.1 % (11.6-14.8); RED BLOOD COUNT 3.65 10^6/ul (4.20-5.40); WHITE BLOOD COUNT 9.23 K/ul (4.6-10.2)
[2021-11-12 06:59] LABS: ALANINE AMINOTRANSFERASE 52.9 U/L (0-35); ALBUMIN 3.97 g/dL (3.5-5.0); ALKALINE PHOSPHATASE 50.6 U/L (53-141); BILIRUBIN,TOTAL 0.42 mg/dL (0.2-1.3); BLOOD UREA NITROGEN 20.8 mg/dL (7-17); CALCIUM 8.61 mg/dL (8.4-10.2); CARBON DIOXIDE 25.1 mmol/L (22-30.0); CHLORIDE 107.5 mmol/L (98-107); CREATININE 0.93 mg/dL (0.60-1.30); GLUCOSE 115.4 mg/dL (74-106); POTASSIUM 3.78 mmol/L (3.5-5.1); SODIUM 140.4 mmol/L (134.5-145); TOTAL PROTEIN 7.08 g/dL (6.3-8.2)
[2021-11-12 07:05] LABS: PROTHROMBIN TIME 10.2 SEC (9.3-11.0)
[2021-11-12 07:37] LABS: TROPONIN I < 0.012 ng/ml (0.0000-0.120)
[2021-11-12 08:09] LABS: C-REACTIVE PROTEIN 12 mg/L (0-10)
[2021-11-12] MEDS ORDERED: DECADRON IVP SCH (09:00)
[2021-11-12] MEDS: DECADRON IM SCH (09:07)
[2021-11-12] MEDS: LOPID PO SCH ×2 (09:08→21:33)
[2021-11-12] MEDS: ZINC-220 PO SCH (09:08)
[2021-11-12] MEDS: NEURONTIN PO SCH ×6 (09:08→21:35)
[2021-11-12] MEDS: VITAMIN E PO SCH ×2 (09:08→21:34)
[2021-11-12] MEDS: LEXAPRO PO SCH (09:08)
[2021-11-12] MEDS: TENORMIN PO SCH (09:08)
[2021-11-12] MEDS: ASPIRIN CHEWABLE PO SCH (09:08)
[2021-11-12] MEDS: VITAMIN D PO SCH ×2 (09:09)
[2021-11-12] MEDS: HEPARIN SUBCUT SCH ×2 (09:10→21:36)
[2021-11-12] MEDS: ZYRTEC PO SCH (09:14)
[2021-11-12] MEDS: INDAPAMIDE 1.25 MG PO SCH (09:23)
[2021-11-12] MEDS ORDERED: NON-FORMULARY MEDICATION (Gabapentin 300 mg Tablet) PO SCH (09:30)
--- NOTE | 2021-11-12 09:43 | PCM.PROG ---
status: pt improving, alert, speech fluent, nad, vss 2 liters NC oxygen, Day 2 or Remdesivir, on daily dexamethasone, albuterol inhalation tx, heparin 5000 U q day, IV NS 60cc/hr, appetite good heent: eomi, buccal moist lungs: clear heart: RRR abdomen: soft and nontender extremities: warm and dry, pulses intact neuro: cn 3 to 10 grossly intact plan: continue Remdesvir, discharge home Saturday care to Dr Aiken at 19:00
[2021-11-12] MEDS: SODIUM CHLORIDE 1,000 ML IV SCH (10:16)
[2021-11-12] MEDS: HUMULIN R SUBCUT PRN ×3 (11:56→21:37)
[2021-11-12] MEDS: VEKLURY 100 MG in SODIUM CHLORIDE 250 ML IV SCH (11:56)
[2021-11-12] MEDS: DESYREL PO PRN (21:33)
[2021-11-12] MEDS: ROBITUSSIN DM SYRUP PO PRN (21:33)
[2021-11-12] MEDS: PEPCID IVP SCH (22:44)
[2021-11-13] MEDS: SODIUM CHLORIDE 1,000 ML IV SCH ×2 (04:02→22:40)
[2021-11-13] MEDS: VENTOLIN HFA (PER PUFF-WITH SPACER) IH SCH ×3 (05:00→20:00)
[2021-11-13 05:25] LABS: ALANINE AMINOTRANSFERASE 43.9 U/L (0-35); ALBUMIN 3.48 g/dL (3.5-5.0); ALKALINE PHOSPHATASE 45.5 U/L (53-141); ASPARTATE AMINO TRANSFERASE 49.4 U/L (14-36); BILIRUBIN,TOTAL 0.4 mg/dL (0.2-1.3); BLOOD UREA NITROGEN 19.3 mg/dL (7-17); CALCIUM 8.69 mg/dL (8.4-10.2); CARBON DIOXIDE 25.8 mmol/L (22-30.0); CHLORIDE 109.3 mmol/L (98-107); CREATININE 0.89 mg/dL (0.60-1.30); POTASSIUM 4.12 mmol/L (3.5-5.1); SODIUM 140.5 mmol/L (134.5-145); TOTAL PROTEIN 6.36 g/dL (6.3-8.2)
[2021-11-13 05:30] LABS: PROTHROMBIN TIME 10.5 SEC (9.3-11.0)
[2021-11-13] MEDS: SYNTHROID PO SCH (05:54)
[2021-11-13] MEDS: ZYRTEC PO SCH (09:03)
[2021-11-13] MEDS: VITAMIN D PO SCH ×2 (09:04)
[2021-11-13] MEDS: VITAMIN E PO SCH ×2 (09:04→20:51)
[2021-11-13] MEDS: ASPIRIN CHEWABLE PO SCH (09:04)
[2021-11-13] MEDS: LOPID PO SCH ×2 (09:04→20:51)
[2021-11-13] MEDS: LEXAPRO PO SCH (09:05)
[2021-11-13] MEDS: TENORMIN PO SCH (09:05)
[2021-11-13] MEDS: NEURONTIN PO SCH ×2 (09:05→20:51)
[2021-11-13] MEDS: HEPARIN SUBCUT SCH ×2 (09:05→20:49)
[2021-11-13] MEDS: ZINC-220 PO SCH (09:05)
[2021-11-13] MEDS: PEPCID IVP SCH ×2 (09:06→21:16)
[2021-11-13] MEDS: DECADRON IM SCH (09:06)
[2021-11-13] MEDS: INDAPAMIDE 1.25 MG PO SCH (09:10)
[2021-11-13] MEDS: ROBITUSSIN DM SYRUP PO PRN ×2 (09:25→20:51)
[2021-11-13 11:18] LABS: ABG PH 7.42 (7.35-7.45)
[2021-11-13] MEDS: HUMULIN R SUBCUT PRN ×3 (11:40→20:50)
[2021-11-13] MEDS: VEKLURY 100 MG in SODIUM CHLORIDE 250 ML IV SCH (11:40)
--- NOTE | 2021-11-13 13:24 | CT ---
EXAM: CTA CHEST HISTORY: Chest pain, COVID-19 positive TECHNIQUE: CTA chest with intravenous contrast. PE protocol. Multiplanar images were provided with MIP images and 3-D reconstructions. COMPARISON: None FINDINGS: No pulmonary arterial filling defects to indicate emboli. Mild atherosclerotic disease without obvio us coronary artery involvement. Heart size is mildly enlarged. No pericardial effusion. No mediast inal or hilar lymphadenopathy. The lungs reveal moderate patchy bilateral consolidations more noticeable on the right consistent wit h the patient's history of COVID-19 pneumonia. No pleural fluid or vascular congestion. No pneumoth orax. Bones are within normal limits. IMPRESSION: 1. No pulmonary arterial thromboembolism. 2. The lungs reveal moderate patchy bilateral consolidations more noticeable on the right consistent with the patient's history of COVID-19 pneumonia. 3. Mild atherosclerotic disease. 4. Mild cardiomegaly. - - All CT scans are performed using dose optimization techniques as appropriate to the performed exam an d include at least one of the following: Automated exposure control, adjustment of the mA and/or kV according t o size, and the use of iterative reconstruction technique.
--- NOTE | 2021-11-13 16:48 | PCM.PROG ---
pt stable, alert, awake, has more pleuritic chest pain today, o/w vss heent: eomi, buccal moist lungs: bilateral rhonchi heart: RRR abdomen: soft and nontender extremities: warm and dry, pulses intact ekg: nsr 71 no stemi, troponin normal range, cta chest per Rad no PE Plan: advance NC oxygen from 2 to 3liters, continue q6 prn albuterol, Day 3/5 Remdesivir, continue daily dexamethasone and heparin prophylaxis, continue iv Rocephin and zithromax Care to Dr Hanley at 19:00
[2021-11-13] MEDS: DESYREL PO PRN (21:16)
[2021-11-14] MEDS: VENTOLIN HFA (PER PUFF-WITH SPACER) IH SCH ×3 (05:10→19:52)
[2021-11-14 05:25] LABS: ALBUMIN 3.43 g/dL (3.5-5.0); ALKALINE PHOSPHATASE 49.3 U/L (53-141); ASPARTATE AMINO TRANSFERASE 38.4 U/L (14-36); BILIRUBIN,TOTAL 0.44 mg/dL (0.2-1.3); BLOOD UREA NITROGEN 15.1 mg/dL (7-17); CALCIUM 8.81 mg/dL (8.4-10.2); CARBON DIOXIDE 22.9 mmol/L (22-30.0); CHLORIDE 111.5 mmol/L (98-107); CREATININE 0.8 mg/dL (0.60-1.30); GLUCOSE 85.8 mg/dL (74-106); POTASSIUM 3.7 mmol/L (3.5-5.1); SODIUM 141.4 mmol/L (134.5-145); TOTAL PROTEIN 6.32 g/dL (6.3-8.2)
[2021-11-14] MEDS: SYNTHROID PO SCH (05:56)
[2021-11-14 07:03] LABS: ABG PH 7.47 (7.35-7.45); BEecf -0.4 (-2.0-3.0); COHb 1.8 (0.5-1.5); HCO3 23.3 (21-28); MetHb 0.9 (0-1.5); TCO2 24.3 (19-24); sO2 91.5 % (94-98); tHb 11.5 g/dl (11.7-17.4)
[2021-11-14 07:49] LABS: HEMATOCRIT 35.3 % (37.0-47.0); HEMOGLOBIN 11.4 g/dl (12.0-16.0); IMMATURE GRANULOCYTE # (AUTO) 0.1 (0.0-1.0); IMMATURE GRANULOCYTE % (AUTO) 0.8 % (0.0-5.0); LYMPHOCYTES # (AUTO) 1.9 K/uL (0.60-3.4); LYMPHOCYTES % (AUTO) 31.5 (10.0-50.0); MEAN CORPUSCULAR HEMOGLOBIN 31.8 pg (27.0-31.0); MEAN CORPUSCULAR HGB CONC 32.3 (31.8-35.4); MEAN CORPUSCULAR VOLUME 98.3 fl (81.0-99.0); MONOCYTES # (AUTO) 0.4 K/uL (0.4-2.0); MONOCYTES % (AUTO) 6.8 (0-10); NEUTROPHILS # (AUTO) 3.7 K/ul (2.0-6.9); NEUTROPHILS % (AUTO) 60.9 % (42.2-75.2); PLATELET COUNT 151 10^3/uL (140-440); RDW COEFFICIENT OF VARIATION 14.8 % (11.6-14.8); RED BLOOD COUNT 3.59 10^6/ul (4.20-5.40); WHITE BLOOD COUNT 6.03 K/ul (4.6-10.2)
[2021-11-14] MEDS: INDAPAMIDE 1.25 MG PO SCH (08:44)
[2021-11-14] MEDS: ROBITUSSIN DM SYRUP PO PRN (08:44)
[2021-11-14] MEDS: LOPID PO SCH ×2 (08:45→21:14)
[2021-11-14] MEDS: DECADRON IM SCH (08:45)
[2021-11-14] MEDS: ASPIRIN CHEWABLE PO SCH (08:46)
[2021-11-14] MEDS: ZINC-220 PO SCH (08:46)
[2021-11-14] MEDS: LEXAPRO PO SCH (08:46)
[2021-11-14] MEDS: VITAMIN E PO SCH ×2 (08:46→21:13)
[2021-11-14] MEDS: PEPCID IVP SCH ×2 (08:46→20:35)
[2021-11-14] MEDS: TENORMIN PO SCH (08:46)
[2021-11-14] MEDS: NEURONTIN PO SCH ×2 (08:47→21:14)
[2021-11-14] MEDS: VITAMIN D PO SCH ×2 (08:47)
[2021-11-14] MEDS: HEPARIN SUBCUT SCH (08:49)
[2021-11-14] MEDS: ZYRTEC PO SCH (09:08)
[2021-11-14] MEDS: VEKLURY 100 MG in SODIUM CHLORIDE 250 ML IV SCH (11:02)
--- NOTE | 2021-11-14 15:41 | PCM.PROG ---
Date Seen by Provider: 11/14/21 Time Seen by Provider: 15:41 Subjective: Patient feeling better. Still congested and dyspneic but improving Objective: Vitals: T=98.0 F, P=79, R=16, UZ=641/71, SPO2=92 HEENT: Clear Neck: supple; no lymphadenopathy Lungs: diminished Breath sounded bibasilar. CVS: HRRR Abdomen: Soft nontender Extremities: No edema Neurological: CN II -XII intact. NO focal deficit Skin: No abnormal findings Lab/Tests/Diagnostic Imaging: reviewed on chart (1) COVID-19 virus infection: Status: Acute Code(s): U07.1 - COVID-19 SNOMED Code(s): 861576549 (2) Diabetes mellitus, type II: Status: Acute Code(s): E11.9 - Type 2 diabetes mellitus without complications SNOMED Code(s): 37424765 Plan: Continue present treatment
[2021-11-14] MEDS: SODIUM CHLORIDE 1,000 ML IV SCH (16:23)
[2021-11-14] MEDS: HUMULIN R SUBCUT PRN ×2 (17:08→21:14)
[2021-11-15] MEDS: SODIUM CHLORIDE 1,000 ML IV SCH ×2 (02:10→09:04)
[2021-11-15] MEDS: VENTOLIN HFA (PER PUFF-WITH SPACER) IH SCH ×3 (05:30→20:25)
[2021-11-15 05:39] LABS: HEMATOCRIT 35.4 % (37.0-47.0); HEMOGLOBIN 11.5 g/dl (12.0-16.0); IMMATURE GRANULOCYTE # (AUTO) 0.1 (0.0-1.0); IMMATURE GRANULOCYTE % (AUTO) 0.8 % (0.0-5.0); LYMPHOCYTES # (AUTO) 1.7 K/uL (0.60-3.4); LYMPHOCYTES % (AUTO) 26.6 (10.0-50.0); MEAN CORPUSCULAR HEMOGLOBIN 31.4 pg (27.0-31.0); MEAN CORPUSCULAR HGB CONC 32.5 (31.8-35.4); MEAN CORPUSCULAR VOLUME 96.7 fl (81.0-99.0); MONOCYTES # (AUTO) 0.4 K/uL (0.4-2.0); MONOCYTES % (AUTO) 6.9 (0-10); NEUTROPHILS # (AUTO) 4.2 K/ul (2.0-6.9); NEUTROPHILS % (AUTO) 65.7 % (42.2-75.2); PLATELET COUNT 162 10^3/uL (140-440); RDW COEFFICIENT OF VARIATION 14.6 % (11.6-14.8); RED BLOOD COUNT 3.66 10^6/ul (4.20-5.40); WHITE BLOOD COUNT 6.42 K/ul (4.6-10.2)
[2021-11-15 05:53] LABS: ALANINE AMINOTRANSFERASE 32.5 U/L (0-35); ALBUMIN 3.28 g/dL (3.5-5.0); ALKALINE PHOSPHATASE 46.8 U/L (53-141); ASPARTATE AMINO TRANSFERASE 36.9 U/L (14-36); BILIRUBIN,TOTAL 0.47 mg/dL (0.2-1.3); BLOOD UREA NITROGEN 16.1 mg/dL (7-17); CALCIUM 8.82 mg/dL (8.4-10.2); CARBON DIOXIDE 22.3 mmol/L (22-30.0); CHLORIDE 111.4 mmol/L (98-107); CREATININE 0.67 mg/dL (0.60-1.30); GLUCOSE 110.6 mg/dL (74-106); POTASSIUM 3.88 mmol/L (3.5-5.1); SODIUM 140.6 mmol/L (134.5-145); TOTAL PROTEIN 6.19 g/dL (6.3-8.2)
[2021-11-15] MEDS: SYNTHROID PO SCH (06:06)
[2021-11-15 06:13] LABS: PROTHROMBIN TIME 10.9 SEC (9.3-11.0)
[2021-11-15 06:27] LABS: FERRITIN 88.5 ng/mL (11.1-264.0)
[2021-11-15 06:42] LABS: BEecf -0.5 (-2.0-3.0)
[2021-11-15 06:43] LABS: ABG O2 HGB 89.9 % (95-100); COHb 2.1 (0.5-1.5); MetHb 0.7 (0-1.5); TCO2 25.1 (19-24); sO2 89.3 % (94-98); tHb 12.8 g/dl (11.7-17.4)
[2021-11-15 07:11] LABS: ABG PH 7.42 (7.35-7.45)
[2021-11-15 07:12] LABS: BEecf -0.5 (-2.0-3.0); COHb 2.1 (0.5-1.5); MetHb 0.7 (0-1.5); TCO2 25.1 (19-24); sO2 89.3 % (94-98)
[2021-11-15 07:13] LABS: ABG O2 HGB 2.1 % (95-100); tHb 12.8 g/dl (11.7-17.4)
[2021-11-15] MEDS: ZYRTEC PO SCH (09:05)
[2021-11-15] MEDS: DECADRON IM SCH (09:06)
[2021-11-15] MEDS: PEPCID IVP SCH ×2 (09:06→21:43)
[2021-11-15] MEDS: VITAMIN D PO SCH (09:06)
[2021-11-15] MEDS: NEURONTIN PO SCH ×2 (09:07→21:19)
[2021-11-15] MEDS: ASPIRIN CHEWABLE PO SCH (09:07)
[2021-11-15] MEDS: VITAMIN E PO SCH ×2 (09:07→21:19)
[2021-11-15] MEDS: LEXAPRO PO SCH (09:07)
[2021-11-15] MEDS: TENORMIN PO SCH (09:07)
[2021-11-15] MEDS: LOPID PO SCH ×2 (09:07→21:19)
[2021-11-15] MEDS: ZINC-220 PO SCH (09:07)
[2021-11-15] MEDS: LOVENOX SUBCUT SCH (09:09)
[2021-11-15] MEDS: INDAPAMIDE 1.25 MG PO SCH (09:15)
[2021-11-15] MEDS: VEKLURY 100 MG in SODIUM CHLORIDE 250 ML IV SCH (13:00)
--- NOTE | 2021-11-15 16:35 | PCM.PROG ---
Date Seen by Provider: 11/15/21 Time Seen by Provider: 13:00 Subjective: 71 y/o female with COVID pneumonia and hypoxia. CC - dyspnea and weakness. HPI - 71 y/o female with hypoxia, following being ill a few days with COVID pneumonia. Dyspnea with exertion,nausea. Currently receiving oxygen and remdesivir, see all orders. Objective: Vitals: T=97.8 F, P=62, R=17, SF=523/62, SPO2=92 HEENT: [WNL] Neck: [Supple] Lungs: [Decreased breath sounds, no active wheezes.] CVS: [RRR, no m] Abdomen: [obese, soft] Extremities: [intact, some chronic LE edema] Neurological: [intact] Skin: [wnl] Lab/Tests/Diagnostic Imaging: [see report, no results of concern] (1) COVID-19 virus infection: Status: Acute Code(s): U07.1 - COVID-19 SNOMED Code(s): 472428319 Assessment: With pneumonia and hypoxia. Getting better. Needs about 4 L per NC to keep sat 92 and above. Completed rem. today. (2) Diabetes mellitus, type II: Status: Acute Code(s): E11.9 - Type 2 diabetes mellitus without complications SNOMED Code(s): 27976339 Assessment: Generally good control even on the decadron. Sliding scale insulin prn. Plan: Continue current tx. Nurses will contact discharge planners re: home oxygen Could be d/c tomorrow. DVT prophylaxis continues with lovenox. No GI prophy clinically indicated.
[2021-11-15] MEDS: HUMULIN R SUBCUT PRN ×2 (17:10→21:21)
[2021-11-15] MEDS ORDERED: ZOFRAN 4 MG/2 ML IVP PRN (19:43)
[2021-11-15] MEDS ORDERED: ZOFRAN 4 MG/2 ML IVP SCH (21:00)
[2021-11-16] MEDS: SODIUM CHLORIDE 1,000 ML IV SCH (03:52)
[2021-11-16] MEDS: VENTOLIN HFA (PER PUFF-WITH SPACER) IH SCH ×2 (04:45→14:29)
[2021-11-16] MEDS: SYNTHROID PO SCH (05:53)
[2021-11-16 05:55] LABS: BASOPHILS % (AUTO) 0.2 % (0.0-3.0); EOSINOPHILS % (AUTO) 0.1 % (0.0-7.0); HEMATOCRIT 34.5 % (37.0-47.0); HEMOGLOBIN 11.4 g/dl (12.0-16.0); IMMATURE GRANULOCYTE # (AUTO) 0.1 (0.0-1.0); IMMATURE GRANULOCYTE % (AUTO) 1.2 % (0.0-5.0); LYMPHOCYTES # (AUTO) 2.2 K/uL (0.60-3.4); LYMPHOCYTES % (AUTO) 21.3 (10.0-50.0); MEAN CORPUSCULAR HEMOGLOBIN 32.1 pg (27.0-31.0); MEAN CORPUSCULAR VOLUME 97.2 fl (81.0-99.0); MONOCYTES # (AUTO) 0.7 K/uL (0.4-2.0); NEUTROPHILS # (AUTO) 7.3 K/ul (2.0-6.9); NEUTROPHILS % (AUTO) 70.2 % (42.2-75.2); PLATELET COUNT 198 10^3/uL (140-440); RDW COEFFICIENT OF VARIATION 14.5 % (11.6-14.8); RED BLOOD COUNT 3.55 10^6/ul (4.20-5.40); WHITE BLOOD COUNT 10.32 K/ul (4.6-10.2)
[2021-11-16 06:13] LABS: ALANINE AMINOTRANSFERASE 28.3 U/L (0-35); ALBUMIN 3.28 g/dL (3.5-5.0); ALKALINE PHOSPHATASE 52.5 U/L (53-141); ASPARTATE AMINO TRANSFERASE 39.7 U/L (14-36); BILIRUBIN,TOTAL 0.45 mg/dL (0.2-1.3); BLOOD UREA NITROGEN 14.8 mg/dL (7-17); CALCIUM 8.92 mg/dL (8.4-10.2); CARBON DIOXIDE 26.3 mmol/L (22-30.0); CHLORIDE 110.5 mmol/L (98-107); CREATININE 0.81 mg/dL (0.60-1.30); GLUCOSE 87.3 mg/dL (74-106); POTASSIUM 3.77 mmol/L (3.5-5.1); SODIUM 141.2 mmol/L (134.5-145); TOTAL PROTEIN 6.21 g/dL (6.3-8.2)
[2021-11-16 06:30] LABS: TROPONIN I < 0.012 ng/ml (0.0000-0.120)
[2021-11-16] MEDS: LOVENOX SUBCUT SCH (08:47)
[2021-11-16] MEDS: ROBITUSSIN DM SYRUP PO PRN (08:51)
[2021-11-16] MEDS: VITAMIN E PO SCH (08:52)
[2021-11-16] MEDS: ASPIRIN CHEWABLE PO SCH (08:52)
[2021-11-16] MEDS: ZINC-220 PO SCH (08:52)
[2021-11-16] MEDS: NEURONTIN PO SCH (08:52)
[2021-11-16] MEDS: VITAMIN D PO SCH (08:52)
[2021-11-16] MEDS: TENORMIN PO SCH (08:53)
[2021-11-16] MEDS: LOPID PO SCH (08:53)
[2021-11-16] MEDS: LEXAPRO PO SCH (08:53)
[2021-11-16] MEDS: DECADRON IM SCH (08:53)
[2021-11-16] MEDS: PEPCID IVP SCH (08:54)
[2021-11-16] MEDS: ZYRTEC PO SCH (08:56)
[2021-11-16] MEDS: INDAPAMIDE 1.25 MG PO SCH (09:08)
[2021-11-16 14:40] VITALS: BP 122/56; TEMP 98.6
--- NOTE | 2021-11-16 15:37 | PCM.DC ---
Final Diagnosis: COVID 19 Pneumonia Diabetes Mellitus II (1) COVID-19 virus infection: Status: Acute Code(s): U07.1 - COVID-19 SNOMED Code(s): 250287033 (2) Diabetes mellitus, type II: Status: Acute Code(s): E11.9 - Type 2 diabetes mellitus without complications SNOMED Code(s): 55173983 Reason for Hospitalization: Patient admitted to hospital after evaluation in ER for SOB. Diagnosed with COVID 19 Respiratory infection /pneumonia/ Initiated respiratory therapy treatments and patient decided to accept IV Remdesifvir therapy. IV Steriods administered Over the course of several days patient improved, completed Remdesivir therapy and is ready for discharge to home Prognosis/Condition at Discharge: Fair/Stable Medications at Discharge: Ambulatory Orders Medication Instructions Recorded aspirin 81 mg tablet 81 mg PO DAILY 06/29/21 atenolol 25 mg tablet 25 mg PO DAILY 06/29/21 escitalopram oxalate 10 mg tablet 10 mg PO DAILY 06/29/21 hydrocodone 10 mg-acetaminophen 1 tab PO BID PRN 06/29/21 325 mg tablet indapamide 1.25 mg tablet 1.25 mg PO QAM 06/29/21 levothyroxine 75 mcg tablet 75 mcg PO DAILY 06/29/21 (Euthyrox) metformin 500 mg tablet 500 mg PO BID 06/29/21 omeprazole 20 mg capsule,delayed 20 mg PO DAILY 06/29/21 release omeprazole 40 mg capsule,delayed 40 mg PO BEDTIME 06/29/21 release trazodone 100 mg tablet 100 mg PO BEDTIME PRN 06/29/21 vitamin E 400 unit capsule 400 unit PO BID 06/29/21 gabapentin 300 mg tablet 300 mg PO DAILY 11/12/21 gabapentin 600 mg tablet 600 mg PO BEDTIME 11/12/21 albuterol sulfate 90 mcg/actuation 2 puff INHALATION TID #18 g 11/16/21 aerosol inhaler (Proventil HFA) cetirizine 10 mg capsule (Zyrtec) 10 mg PO DAILY #30 cap 11/16/21 famotidine 20 mg tablet (Pepcid) 20 mg PO DAILY #30 tab 11/16/21 Lab/Diagnostics: See Chart Education Provided to Patient and Family: Yes Follow-ups: PCP 1 week Discharge Disposition: Home
[2021-11-17 07:16] LABS: C-REACTIVE PROTEIN 16 mg/L (0-10)
== END 2021-11-16 16:38 | disposition home or self-care (01) | DRG 177 ==
LOC: ED 16:00 → SCU 22:44 → EDSTATUS 11-11 13:45
PROVIDERS: ADMIT Emergency Medicine; ATTEND Emergency Medicine